=== PATIENT | female | born 1960 | race Caucasian/White ===

== ENCOUNTER → 2017-08-26 | Outpatient (CLI) | payer BC ==
[2016-03-21 11:15] VITALS: BMI 33.5
[~2017-08-26] MED LIST: DAYQUIL; FLU60SYR30 IM ONLY; LEVO25TA61 PO; LEVO50TA86 PO; LISI-362 PO; LOR5/325 PO; NYQUIL; ONDA4TAB PO; PSEU-75 PO
[2017-08-26 08:59] LABS: PLATELET COUNT, AUTOMATED 320 K/uL (150-450)
== END ==
LOC: LAB 08:41
PROVIDERS: ATTEND Nurse Practitioner Family
DX: I10 Essential (primary) hypertension (principal); E03.9 Hypothyroidism, unspecified; D64.9 Anemia, unspecified
CPT/HCPCS: 36415; 82310; 82374; 82435; 82565; 82947; 84132; 84295; 84443; 84520; 85025

== ENCOUNTER → 2018-03-20 | Outpatient (CLI) | payer BC ==
[2016-03-21 11:15] VITALS: BMI 33.5
[~2018-03-20] MED LIST changes: +AMOX-559 PO; +BENZ200C15 PO; +DIPH0.5D12 IM; +ESTR10TA4 VA; +FLUT16SP19 NS; +GUAI120L3 PO; +LOSA50TA74 PO; +NALT1TAB PO
[2018-03-20 10:01] LABS: PLATELET COUNT, AUTOMATED 315 K/uL (150-450)
[2018-03-20 10:10] LABS: LDL CHOLESTEROL 117 mg/dl
== END ==
LOC: LAB 08:49
PROVIDERS: ATTEND Nurse Practitioner Family
DX: E03.9 Hypothyroidism, unspecified (principal); I10 Essential (primary) hypertension; Z11.59 Encounter for screening for other viral diseases
CPT/HCPCS: 36415; 82040; 82247; 82310; 82374; 82435; 82465; 82565; 82947; 83718; 84075; 84132; 84155; 84295; 84443; 84450; 84460; 84478; 84520; 85025; 86803

== ENCOUNTER → 2018-06-05 | Outpatient (CLI) | payer BC ==
[2016-03-21 11:15] VITALS: BMI 33.5
[~2018-06-05] MED LIST changes: -LOSA50TA74 PO; +LOSA50TA80 PO
--- NOTE | 2018-06-05 15:43 | RADIOLOGY IMAGING REPORT ---
FACILITY: [facility] PATIENT NAME: DAMON FIERRO : [id number] MR: [id number] V: [id number] EXAM DATE: ORDERING PHYSICIAN: LULU HERNANDEZ TECHNOLOGIST: Chiara Blum PROCEDURE:BILATERAL DIGITAL SCREENING MAMMOGRAM WITH CAD ASSISTED INTERPRETATION & 3D TOMOSYNTHESIS COMPARISON:Prior mammograms 04/25/17. INDICATIONS:screening FINDINGS: The anterior 1/3 of the breasts are heterogeneously dense which can obscure small masses. Just above the mid nipple line in the middle 1/3 of the Left breast on the Left MLO view there is a focal asymmetry that appears more prominent when compared to the prior study for which Spot compression view is recommended. This is best seen on Tomographic slice 21. The remainder of the parenchymal pattern has remained stable. DIAGNOSTIC CATEGORY 0--INCOMPLETE: NEED ADDITIONAL IMAGING EVALUATION. RECOMMENDATIONS: ADDITIONAL MAMMOGRAPHIC VIEWS REQUIRED: LEFT BREAST. IMPRESSION: BIRADS 0: incomplete. Additional views of the Left breast recommended as described. Dictated by: Coco Glaser M.D. on 06/05/2018 at 14:40 Transcribed by: MARIA D on 06/05/2018 at 14:51 Approved by: Coco Glaser M.D. on 06/05/2018 at 15:43 [facility]
== END ==
LOC: MAMO 00:14
PROVIDERS: ATTEND Nurse Practitioner Family
DX: R92.8 Other abnormal and inconclusive findings on diagnostic imaging of breast (principal)
CPT/HCPCS: 77063; 77067

== ENCOUNTER → 2018-07-16 | Outpatient (CLI) | payer BC ==
[2016-03-21 11:15] VITALS: BMI 33.5
[~2018-07-16] MED LIST changes: +HYDR12.561 PO; +LOSA-57 PO; +LOSA100T75 PO
== END ==
LOC: LAB 08:22
PROVIDERS: ATTEND Nurse Practitioner Family
DX: I10 Essential (primary) hypertension (principal)
CPT/HCPCS: 36415; 82310; 82374; 82435; 82565; 82947; 84132; 84295; 84520